=== PATIENT | male | born 1990 | race Caucasian/White ===

== ENCOUNTER 2016-12-27 13:17 | Outpatient (CLI) | payer OTHER ==
--- NOTE | 2016-12-27 16:54 | RAD ---
LUMBAR SPINE THREE VIEWS: 12/27/16 HISTORY: 26-year-old male with low back pain for five years with history of arthritis. No evidence for acute fracture of dislocation. The disc spaces appear adequately preserved. Very mil d inferior lumbar spine facet arthrosis. IMPRESSION: No fracture or dislocation. Very mild spondylosis. POS: [facility]
== END 2016-12-27 13:18 | disposition home or self-care (01) ==
LOC: MADRAD 13:17
PROVIDERS: ATTEND Orthopaedic Surgery
DX: M13.80 Other specified arthritis, unspecified site (principal); M47.816 Spondylosis without myelopathy or radiculopathy, lumbar region
CPT/HCPCS: 72100